=== PATIENT | female | born 1995 | race African-American/Black ===

== ENCOUNTER 2017-12-04 10:14 | Emergency (ER) | payer OTHER ==
[~2017-12-04] VITALS: Ht 160 cm; Wt 121.3 kg
--- NOTE | 2017-12-04 11:29 | Diagnostic Imaging Report ---
EXAM: XR CHEST 2 VIEWS DATE: 12/04/2017 12:00 AM INDICATION: Cough. Rule out pneumonia. COMPARISON: None FINDINGS: Lines and Tubes: None Heart and Mediastinum: No acute cardiomediastinal findings. Lungs and Pleura: Body habitus and overlying soft tissue limits evaluation. No pneumothorax. Bones and Soft Tissues: No acute findings. IMPRESSION: 1. Minimal basilar opacities poorly evaluated due to overlying soft tissue. Signed by: Dr. Anurag Taylor MD on 12/04/2017 11:26 AM
[2017-12-04 12:10] VITALS: BP 100/70
== END 2017-12-04 12:35 | disposition home or self-care (01) ==
LOC: FSED 10:14
DX: M79.642 Pain in left hand (principal); M79.641 Pain in right hand; M79.672 Pain in left foot; M79.671 Pain in right foot; G62.9 Polyneuropathy, unspecified
CPT/HCPCS: 71046; 80053; 81003; 81025; 85025